=== PATIENT | male | born 1945 | race Caucasian/White ===

== ENCOUNTER → 2025-02-10 09:14 | Outpatient (REF) | payer MEDICARE, OTHER, SELFPAY ==
[2025-02-10 10:06] LABS: Hematocrit 42.1 % (39.0-52.0); Hemoglobin 15.2 g/dL (13.0-18.0); Mean Corp Hgb Conc. 36.1 g/dL (33.0-37.0); Mean Corpuscular Volume 96.1 fL (80.0-94.0); Nucleated Red Blood Cells % 0 % (-); Platelet Count 220 10^3/uL (130-400); Red Cell Dist. Width 12.4 % (11.5-14.5)
[2025-02-10 10:24] LABS: INR 1.16; PT 15.1 Sec (11.4-14.6)
[2025-02-10 10:47] LABS: ALT (SGPT) 31 U/L (0-50); AST (SGOT) 22 U/L (17-59); Albumin 4.7 g/dl (3.5-5.0); Alkaline Phosphatase 68 U/L (38-126); Blood Urea Nitrogen 14 mg/dl (9-20); Calcium 9.9 mg/dl (8.4-10.2); Carbon Dioxide 26 mmol/L (22-30); Chloride 104 mmol/L (98-107); Glucose 101 mg/dl (70-99); Magnesium 2.0 mg/dl (1.6-2.3); Potassium 4.5 mmol/L (3.5-5.1); Sodium 137 mmol/L (135-145); Total Protein 7.4 g/dl (6.3-8.2); eGFR > 60.00
== END ==
LOC: CATH 09:14
PROVIDERS: ATTENDING PHYSICIAN Internal Medicine Cardiovascular Disease; FAMILY PHYSICIAN Family Medicine; OTHER PHYSICIAN Internal Medicine Cardiovascular Disease
DX: I48.0 Paroxysmal atrial fibrillation (principal)
CPT/HCPCS: 36415; 75572; 80053; 83735; 85025; 85610; 86850; 86900; 86901; 93005; Q9967

== ENCOUNTER 2025-03-08 10:09 | Day surgery (SDC) | payer MEDICARE, OTHER, SELFPAY ==
[2025-02-10 10:19] VITALS: BMI 31.1
[2025-03-08] VITALS (14 sets, daily range): BP systolic 122–184; BP diastolic 69–162; BMI 31.5
[2025-03-08] MEDS: TYLENOL 1000 MG PO (10:52)
[2025-03-08 13:57] LABS: ACT-LR - POC 295 Seconds (116-155)
[2025-03-08 14:16] LABS: ACT-LR - POC 342 Seconds (116-155)
--- NOTE | 2025-03-08 14:40 | ITS.CL.ABL ---
Concrete Saw Operator - Ablation
Ablation
Procedure Report:
ELECTROPHYSIOLOGY ABLATION STUDY
DATE:: March 08, 2025�����������������������������REFERRING: Dr. Anjum Rayo
INDICATION: Paroxysmal supraventricular tachycardia in the form of atrial fibrillation.��History of dofetilide use
HISTORY: See H and P.��As above
ANTIARRHYTHMIC DRUG: Dofetilide
PRE-PROCEDURE MELY: No atrial thrombus
PRESENTING RHYTHM: Atrial fibrillation
'TIME-OUT':��called and confirmed.
SEDATION/ANESTHESIA:��provided via the anesthesia department using general anesthesia (LMA).
INTRAVENOUS/ARTERIAL ACCESS:
Right femoral venous - 8Fr
Left femoral venous - 8 Fr, 6 Fr
Mcdxor-ct-scwgu suture to bilateral groins
Ultrasound guidance for bilateral femoral vein access was utilized by me to obtain access with demonstration of normal anatomy
CHADS-VASC Score:
HAS-Bled Score
PROCEDURE:
1.��A decapolar CS catheter was placed within the CS for mapping and pacing.��This was also used as the reference catheter for the 3-D map. Patient converted to sinus rhythm cycle length 900 ms after sedation and was noted to have an approximately
8-second pause during groin pressure post procedure which was answered with 0.5 mg atropine with resumption of sinus rhythm in the 50s to 70s as well as an ectopic atrial rhythm at 90 bpm.
2. The intracardiac ultrasound catheter was positioned in the RA to identify the FO for targeting of transseptal puncture, assist��in identification of the pulmonary vein ostia, monitoring pre and post ablation pulmonary vein flow velocities,
monitoring for 'bubble' formation during RF application as a sign of thermal injury,��and to monitor for pericardial effusion during mapping and ablation procedure.���Left atrial size, LV ejection fraction, and pulmonary vein flows were monitored
pre and post ablation procedure. The other valves were inspected and found to be free of significant regurgitation or stenosis.
3.��Half of the calculated heparin bolus was administered prior to the first transeptal puncture.��Transseptal puncture was performed to diagnose RA and LA pressure so that safety of LA mapping and ablation could be further assessed, and to access
the left atrium and pulmonary veins for mapping and ablation.��This entailed advancing an 8 Fr SL-1 sheath with dilator into the superior vena cava and withdrawing both (monitoring intracardiac ultrasound, fluoroscopy and tip pressure) with the tip
oriented toward the atrial septum.��The fossa ovalis was engaged (indicated by sudden displacement of the sheath tip as well as tenting of the fossa seen on intracardiac ultrasound).��Left atrial access required a pass with the Brockenbrough needle
extended.��Left atrial catheter position was confirmed by pressure monitoring (RA mean pressure 8 mm Hg and LA mean presure 14 mm Hg), LA saturation (99%),��as well as fluoroscopy.��The sheath was advanced over the dilator and positioned in the left
atrium.��This procedure was repeated for the Agilis sheath.��The remainder of the calculated heparin bolus was administered and heparin was
infused to maintain ACT at 300 -350 seconds throughout the case.
4.��RA pacing was performed via the proximal decapolar poles and LA pacing was performed via the distal decapolar poles.
5. A quadrapolar catheter was first positioned at the His position for His Bundle recording which was tagged via the 3-D Navex sytem, and then passed to the RVA for RV pacing and recording.
6. The 9 mm lattice catheter was placed in each of the LIPV, LSPV, RSPV and the RIPV.��
7.��Next, a 3-D map was created using Navex.���A 3-D reconstructed CT image was compared to the 3-D Navex map to assist in anatomic interpretation, mapping and ablation.��The CT image and the NavX image were fused.
8. Entrance and exit block was confirmed in all 4 pulmonary veins after a [place] ablation around the left and right pulmonary veins as well as a box lesion set with a roofline and floor line and posterior wall substrate ablation rendering
entrance next block for pulmonary veins as well as the roof posterior wall and floor of the left atrium.
9. Besides the pause noted during groin pressure the patient had normal sinus node function
TOTAL FLOURO TIME: 12 minutes 123 mGy
TOTAL RF DURATION: 0 minutes
REVERSAL OF HEPARIN: 35 mg of protamine, slow IV administration
COMPLICATIONS:
None
Intracardiac US shows no pericardial effusion post ablation.
SUMMARY:��
Complex left atrial mapping and ablation.
Pulmonary vein isolation of all 4 pulmonary veins as well as left atrial posterior wall isolation with a posterior box lesion set.
RECOMMENDATIONS:
1. Hold carvedilol this evening and resume tomorrow
2. Resume anticoagulation
3.��Discontinue dofetilide
4.� Can consider same-day discharge in 4 hours
Copy to: Dr. Anjum Rayo
--- NOTE | 2025-03-08 15:21 | W.PN.UPDATE ---
Update Note
Progress Note Update
Patient is having ectopic atrial rhythm at 90 bpm with intermittent asymptomatic pauses which are sinus pauses up to 5 seconds. As such we will keep the patient overnight and hold carvedilol tonight. I suspect the patient will not need permanent
pacing but will keep overnight and n.p.o. after midnight just in case but have no objection as the patient arrived in atrial fibrillation and left procedure in sinus rhythm for giving Eliquis this evening. I will discuss with his plan of care
and will to monitor overnight for bev of the pauses. I suspect this may be related to sedation and hopefully will improve with a tincture of time. Will follow closely.
--- NOTE | 2025-03-08 16:48 | PTCARENOTE ---
received pt from recovery area. transcutaneous pacing set at 40 and MA 10. VSS, SR on tele monitor. AOx3, no complaints of pain or discomfort. B/L groin sites CDI. Oriented to room and unit. Call simon within reach.
[2025-03-08] MEDS: LIPITOR 20 MG PO (17:32)
[2025-03-08] MEDS: ELIQUIS 5 MG PO (21:56)
--- NOTE | 2025-03-08 22:19 | PTCARENOTE ---
Rec'd pt at change of shift. PT Sinus tach on TELE monitor, VSS, and AAO*3. Pt denies any pain or discomfort at this time. BL groin sites with dressing CDI. Pt with pacer pads connected to life pack as ordered. No pauses noted on TELE monitor.
Pt updated with plan of care and given education on purpose of eliquis and lipitor. Pt now resting with call simon in reach. See MAR and flowchart for full pt care and assessment.
[2025-03-09 02:51] VITALS: BP 159/84
[2025-03-09 02:52] VITALS: BP 159/84
[2025-03-09 03:10] VITALS: BMI 31.9
[2025-03-09 04:15] LABS: Hematocrit 38.6 % (39.0-52.0); Hemoglobin 14.0 g/dL (13.0-18.0); Mean Corp Hgb Conc. 36.3 g/dL (33.0-37.0); Mean Corpuscular Volume 95.5 fL (80.0-94.0); Platelet Count 200 10^3/uL (130-400); Red Cell Dist. Width 12.4 % (11.5-14.5)
[2025-03-09 04:36] LABS: Blood Urea Nitrogen 18 mg/dl (9-20); Calcium 9.1 mg/dl (8.4-10.2); Carbon Dioxide 21 mmol/L (22-30); Chloride 108 mmol/L (98-107); Estimated Creatinine Clearance 88 ml/min; Glucose 133 mg/dl (70-99); Potassium 4.1 mmol/L (3.5-5.1); Sodium 137 mmol/L (135-145); eGFR > 60.00
--- NOTE | 2025-03-09 07:49 | PTCARENOTE ---
received patient at change of shift from previous RN. Pt AAOX3, denies pain. ambulating in room without difficulty. SR/ST on telemetry heart rate 90s-low 100s. pulses palpable. bilateral groin sites CDI. pt updated on plan of care. see worklist for
full nursing assessment.
[2025-03-09 08:00] VITALS: BP 151/73
[2025-03-09] MEDS: COREG 6.25 MG PO (08:02)
[2025-03-09] MEDS: ZYLOPRIM 100 MG PO (08:02)
[2025-03-09] MEDS: ELIQUIS 5 MG PO (08:02)
[2025-03-09] MEDS: ZESTRIL 10 MG PO (08:03)
--- NOTE | 2025-03-09 08:23 | W.PN.CARDCBS ---
Addendum entered and electronically signed by Rom Sheldon MD 03/09/25 11:20:
Patient seen and examined
Reviewed telemetry overnight without any sinus pauses
Sinus rhythm in the 90s this morning
Feels well
Agree with WATERWORKS SUPERVISOR note assessment
Agree with WATERWORKS SUPERVISOR plan
Exam:
Bilateral groins clean dry and intact
Alert and x 3
Nonfocal neurologically
Cor regular
Remainder as per WATERWORKS SUPERVISOR note
Impression:
Symptomatic paroxsymal Atrial fibrillation
post PVI 03/08/25
post procedural sinus node pauses up to 5 sec
HTN
HLD
GERD
PAD/AAA
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
Gout
OA h/o THR
Daily ETOH
Plan:
s/p ablation at the end of the case he had a 20sec sinus arrest with groin pressure, requiring atropine
then had additional pauses up to 5sec in recovery period-mechanism likely related to sedation and pain at groin stitch sites which improved rapidly with weaning of sedation and cutting suture sites
admitted for obs o/n with temporary external pacing and atropine at bedside
He has had no further pauses since last night on tele, most likely d/t anesthesia and poss undiagnosed ERICA
He refuses to have sleep study at this time, although it is highly recommended
continue OAC Eliquis
Stop Dofetilide and continue carvedilol
He was instructed not to drive for at least 5 days and call the office if he has any LH or dizziness at home
We also discussed ETOH cessation to prevent recurrence of atrial fibrillation
Activity restrictions reviewed
He will f/u Dr. Rayo in 1 mo
stable for d/c home
Original Note:
Today's Communication / Plan
-
post ablation c/b sinus pauses
resolved, stop dofetilide
continue carvedilol, watch for an hour this am after dose
OAC Eliquis
home today, no driving for 5 days
Impression / Plan
-
PCP: Minh Otero MD
CDY: Jaime Rayo MD
Impression:
Symptomatic paroxsymal Atrial fibrillation
post PVI 03/08/25
post procedural sinus node pauses up to 5 sec
HTN
HLD
GERD
PAD/AAA
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
Gout
OA h/o THR
Daily ETOH
Plan:
s/p ablation at the end of the case he had a 20sec sinus arrest with groin pressure, requiring atropine
then had continue pauses up to 5sec in recovery period
admitted for obs o/n with temporary external pacing and atropine at bedside
He has had no further pauses since last night on tele, most likely d/t anesthesia and poss undiagnosed ERICA
He refuses to have sleep study at this time, although it is highly recommended
continue OAC Eliquis
Stop Dofetilide and continue carvedilol
He was instructed not to drive for at least 5 days and call the office if he has any LH or dizziness at home
We also discussed ETOH cessation to prevent recurrence of atrial fibrillation
Activity restrictions reviewed
He will f/u Dr. Rayo in 1 mo
stable for d/c home
Progress Note - Admiralty Lawyer
Subjective
Date of Service: March 09, 2025
denies cp, sob
Objective
Labs:
03/09/25 03:10
03/09/25 03:10
Labs
Hgb 14.0 g/dL (13.0-18.0) 03/09/25 03:10
Hct 38.6 % (39.0-52.0) L 03/09/25 03:10
Plt Count 200 10^3/uL (130-400) 03/09/25 03:10
Sodium 137 mmol/L (135-145) 03/09/25 03:10
Potassium 4.1 mmol/L (3.5-5.1) 03/09/25 03:10
BUN 18 mg/dl (9-20) 03/09/25 03:10
Creatinine 0.7 mg/dL (0.7-1.3) 03/09/25 03:10
Glucose 133 mg/dl (70-99) H 03/09/25 03:10
Vital Signs and I&O:
Vital Signs
Temp Pulse Resp BP Pulse Ox
98.3 F 93 16 151/73 96
03/09/25 08:14 03/09/25 08:14 03/09/25 08:14 03/09/25 08:02 03/09/25 08:14
Vital Signs
Temp Pulse Resp BP Pulse Ox
98.3 F 93 16 151/73 96
03/09/25 08:14 03/09/25 08:14 03/09/25 08:14 03/09/25 08:02 03/09/25 08:14
Intake & Output
03/07/25 03/08/25 03/09/25 03/10/25
06:59 06:59 06:59 06:59
Output Total 550 / 550
Balance -550 / -550
Physical Exam
Physical Exam
NAD< AOx3
S1, S2, RRR
CTAB, non labored, no wheeze
SNTND Bsx4
R groin c/d/i no HT< soft
L groin with old serosangonus drainge noted, soft
[2025-03-09 09:43] VITALS: BP 148/73
--- NOTE | 2025-03-09 11:15 | CM ---
Chart reviewed. Patient is independent of ADLS, lives with his in a [address], 0 [address], 0 DME. Plan is for the patient to return home.
--- NOTE | 2025-03-09 11:29 | W.DS.TRANS ---
DC Summary - Ap Operator
-
Discharge Instructions:
Sleep Apnea Risk Intermediate
Discharge Diagnosis/Procedures AFib, s/p ablation
Diet Low Cholesterol
Driving Restrictions 5 days
Instructions:
Stand-Alone Forms: DC Instructions- Cath/EP Lab
Changes to Home Medications: Yes
Discharge Medications:
DC Medications w/original date entered in [facility]
allopurinol 100 mg tablet 100 mg PO DAILY Gout 05/10/13
multivitamin (Daily Multiple tablet) 1 tab PO DAILY Supplement 05/10/13
acetaminophen 650 mg tablet,extended release 650 mg PO [id number] PRN pain 02/10/25
apixaban 5 mg tablet (Eliquis) 5 mg PO BID afib 02/10/25
atorvastatin 20 mg tablet 20 mg PO QPM High Cholesterol 02/10/25
carvedilol 6.25 mg tablet 6.25 mg PO BID afib 02/10/25
lisinopril 10 mg tablet 10 mg PO BID Blood Pressure 02/10/25
Home Medication Changes
stop dofetilide
Pending Results: No
== END 2025-03-09 10:49 | disposition home or self-care (01) ==
LOC: CATH 10:09
PROVIDERS: Nurse Practitioner; ATTENDING PHYSICIAN Internal Medicine Cardiovascular Disease; FAMILY PHYSICIAN Family Medicine; OTHER PHYSICIAN Internal Medicine Cardiovascular Disease
DX: I48.0 Paroxysmal atrial fibrillation (principal); I48.4 Atypical atrial flutter; I10 Essential (primary) hypertension; E78.5 Hyperlipidemia, unspecified; I25.10 Atherosclerotic heart disease of native coronary artery without angina pectoris; I73.9 Peripheral vascular disease, unspecified; Z86.79 Personal history of other diseases of the circulatory system; I34.0 Nonrheumatic mitral (valve) insufficiency; K21.9 Gastro-esophageal reflux disease without esophagitis; Z86.0100 Personal history of colon polyps, unspecified; M19.90 Unspecified osteoarthritis, unspecified site; Z96.642 Presence of left artificial hip joint; M43.10 Spondylolisthesis, site unspecified; R73.01 Impaired fasting glucose; E66.9 Obesity, unspecified; Z68.31 Body mass index [BMI] 31.0-31.9, adult; Z87.891 Personal history of nicotine dependence; M10.9 Gout, unspecified; Z79.899 Other long term (current) drug therapy; Z79.01 Long term (current) use of anticoagulants; I47.10 Supraventricular tachycardia, unspecified; I71.40 Abdominal aortic aneurysm, without rupture, unspecified; Z88.2 Allergy status to sulfonamides; Z90.89 Acquired absence of other organs; Z91.030 Bee allergy status
CPT/HCPCS: C1733; C1894; C1730; C1766; C1892; C1759; 80048; 85027; 85347; 86900; 86901; 93005; 93656; 93657